=== PATIENT | female | born 1990 | race Caucasian/White ===

== ENCOUNTER 2019-06-15 15:42 | Emergency (ER) | payer MEDICAID, SELFPAY ==
[2019-06-15 15:52] VITALS: BP 170/91; PULSE 65; RESP 18; TEMP 37; O2SAT 99; BMI 37.3
--- NOTE | 2019-06-15 16:39 | W.ED.ABDPA2 ---
Documented by User: Liam Hobbs DO 06/16/19 06:07 HPI - Abdominal Pain General: Chief Complaint: Abdominal Pain Stated Complaint: abd pain Time Seen by Provider: 06/15/19 16:27 History of Present Illness: HPI narrative: 28-year-old female presents emergency room with a complaint of supraumbilical pain that began 5 days ago. Is worse when she is doing heavy labor when she is resting or sitting and supine states she has been mildly constipated lately no diarrhea no hematochezia or melena. She denies UTI symptoms she is vomited twice continues some mild nausea she says rest does seem to make it better she denies fever or dyspnea. She has previously had a cholecystectomy this was done probably 10 years ago she states MD elicited complaint: abdominal pain Pertinent past history: gastritis Onset (ago): minute(s) Pain Consistency: intermittent Location: Periumbilical Severity: moderate Quality: cramping Radiation: none Migration to: no migration Exacerbating factors: movement Relieving factors: nothing Associated Symptoms: Reports GI cramping, nausea, poor appetite and vomiting; Denies chills, fever(s), heartburn, hematochezia, hematuria, hematemesis, loose stools and melena Treatments prior to arrival: antacids Review of Systems Const: Denies: fever, chills, body aches, change in appetite, fatigue or malaise ENMT: Denies: throat pain, ear pain, nasal discharge or nasal congestion Card: Denies: chest pain, edema, shortness of breath on exertion or shortness of breath when lying down Resp: Denies: shortness of breath, productive cough or non-productive cough GI: Reports: nausea, vomiting and cramping; Denies: vomiting blood, heartburn/indigestion, blood in stool or black tarry stool : Denies: blood in urine Skin/Breast: Denies: rash or itching PFSH ED PFSH: Surgical History (Updated 06/15/19 @ 16:43 by Liam Hobbs DO) Hx laparoscopic cholecystectomy Social History Smoking and tobacco status: current every day smoker Physical Exam Const: COMMON NORMALS: no apparent distress GENERAL APPEARANCE: cooperative and comfortable ORIENTATION/CONSCIOUSNESS: Yes awake, Yes oriented to person, Yes oriented to place and Yes oriented to time HENMT: COMMON NORMALS: normocephalic, head/scalp atraumatic, hearing grossly normal bilaterally, external ears normal, EAC's normal, TM's normal bilaterally, nasal mucous membranes and turbinates normal, moist oral mucous membranes and oropharynx normal HEAD & SCALP: normocephalic and atraumatic NOSE: nasal mucous membranes and turbinates normal EXTERNAL EAR: Yes external ears normal EXTERNAL AUDITORY CANAL: EAC's normal TYMPANIC MEMBRANE: TM's normal bilaterally Eye: COMMON NORMALS: PERRL, EOMs intact bilaterally, conjunctivae normal and no scleral icterus CONJUNCTIVA: Yes conjunctivae normal PUPIL: Yes PERRL Neck/C-Spine: COMMON NORMALS: full ROM, no lymphadenopathy, supple and no JVD Lymph: LYMPHATIC: no lymphadenopathy noted and no lymphedema noted Resp: COMMON NORMALS: normal respiratory effort, no retractions, no use of accessory muscles and clear to auscultation bilaterally AUSCULTATION: clear to auscultation bilaterally Cardio: COMMON NORMALS: no JVD, regular rate, regular rhythm and no murmurs RATE: regular rate RHYTHM: regular rhythm GI: COMMON NORMALS: soft to palpation and no hepatosplenomegaly AUSCULTATION: Yes normoactive bowel sounds PALPATION: Yes soft, Yes tender (Epigastric), No guarding, No rigid and Yes no hepatosplenomegaly Extremity: COMMON NORMALS: normal to inspection, normal capillary refill, no clubbing, cyanosis or edema, no calf tenderness and no pedal edema Neuro: SENSORIUM/ORIENTATION: Yes oriented to person, Yes oriented to place and Yes oriented to time Skin: COMMON NORMALS: no rashes or lesions noted GENERAL SKIN EXAM: no rashes or lesions noted Course Vital Signs: Vital signs: Vital Signs Temperature 98.6 F 06/15/19 15:52 Pulse Rate 65 06/15/19 15:52 Respiratory Rate 18 06/15/19 15:52 Blood Pressure 170/91 06/15/19 15:52 Pulse Oximetry 99 06/15/19 15:52 MDM - Abdominal Pain MDM Narrative: Medical decision making narrative: Care transferred to Dr. Le at change of shift CT was pending. Lab Data: Labs: Lab Results 06/15/19 06/15/19 06/15/19 Range/Units 17:25 17:25 18:00 WBC 12.8 H (4.0-10.0) 10^3/ uL RBC 4.80 (4.1-5.3) 10^6/u L Hgb 14.2 (11.5-15.3) g/dL Hct 43.2 (37.0-47.0) % MCV 90.0 (81-99) fL MCH 29.6 (28.0-34.0) pg MCHC 32.9 (30.0-36.0) g/dL RDW 12.9 (12.1-15.1) % Plt Count 221 (130-400) 10^3/c mm MPV 10.0 (7.4-10.4) fL Neut % (Auto) 74.0 % Lymph % (Auto) 19.8 % Woodson % (Auto) 4.2 % Eos % (Auto) 1.3 % Baso % (Auto) 0.2 % Neut # (Auto) 9.5 H (1.8-7.7) 10^3/u L Lymph # (Auto) 2.5 (0.8-4.8) 10^3/u L Woodson # (Auto) 0.5 (0.2-0.9) 10^3/u L Eos # (Auto) 0.2 (0.0-0.8) 10^3/u L Baso # (Auto) 0.0 (0.0-0.1) 10^3/u L Nucleated RBC % (a uto) 0 % Nucleated RBCs # 0.0 /100WBC Sodium 138 (136-145) mmol/L Potassium 4.0 (3.5-5.1) mmol/L Chloride 104 (98-107) mmol/L Carbon Dioxide 23 (22-29) mmol/L Anion Gap 15.0 (5-19) BUN 8 (6-20) mg/dL Creatinine 0.6 (0.5-0.9) mg/dL GFR Calculation 120.8 (90-130) mL/min Glucose 94 (65-115) mg/dL Calculated Osmolal ity 282 L (285-295) mOsm/k g Calcium 9.5 (8.5-10.5) mg/dL Total Bilirubin 0.3 (0.15-1.2) mg/dL AST 17 (0-32) U/L ALT 15 (0-33) U/L Alkaline Phosphata se 62 (35-105) IU/L Total Protein 6.8 (6.6-8.7) g/dL Albumin 4.3 (3.5-5.2) g/dL Globulin 2.5 (1.3-4.6) g/dL Lipase 19 (13-60) U/L HCG, Qual Negative (Negative) Urine Color (Yellow) Urine Appearance (CLEAR) Urine pH (5-7) Ur Specific Gravit y (1.005-1.030) Urine Protein (Negative) Urine Glucose (UA) (Normal) Urine Ketones (Negative) Urine Blood (Negative) Urine Nitrate (Negative) Urine Bilirubin (NEGATIVE) Urine Urobilinogen (Negative) mg/dL Ur Leukocyte Yocasta ase (Negative) 06/15/19 06/15/19 Range/Units 18:00 18:25 WBC (4.0-10.0) 10^3/ uL RBC (4.1-5.3) 10^6/u L Hgb (11.5-15.3) g/dL Hct (37.0-47.0) % MCV (81-99) fL MCH (28.0-34.0) pg MCHC (30.0-36.0) g/dL RDW (12.1-15.1) % Plt Count (130-400) 10^3/c mm MPV (7.4-10.4) fL Neut % (Auto) % Lymph % (Auto) % Woodson % (Auto) % Eos % (Auto) % Baso % (Auto) % Neut # (Auto) (1.8-7.7) 10^3/u L Lymph # (Auto) (0.8-4.8) 10^3/u L Woodson # (Auto) (0.2-0.9) 10^3/u L Eos # (Auto) (0.0-0.8) 10^3/u L Baso # (Auto) (0.0-0.1) 10^3/u L Nucleated RBC % (a uto) % Nucleated RBCs # /100WBC Sodium (136-145) mmol/L Potassium (3.5-5.1) mmol/L Chloride (98-107) mmol/L Carbon Dioxide (22-29) mmol/L Anion Gap (5-19) BUN (6-20) mg/dL Creatinine (0.5-0.9) mg/dL GFR Calculation (90-130) mL/min Glucose (65-115) mg/dL Calculated Osmolal ity (285-295) mOsm/k g Calcium (8.5-10.5) mg/dL Total Bilirubin (0.15-1.2) mg/dL AST (0-32) U/L ALT (0-33) U/L Alkaline Phosphata se (35-105) IU/L Total Protein (6.6-8.7) g/dL Albumin (3.5-5.2) g/dL Globulin (1.3-4.6) g/dL Lipase (13-60) U/L HCG, Qual Negative (Negative) Urine Color Yellow (Yellow) Urine Appearance Sl hazy (CLEAR) Urine pH 5 (5-7) Ur Specific Gravit y 1.020 (1.005-1.030) Urine Protein Neg (Negative) Urine Glucose (UA) Norm (Normal) Urine Ketones 1+ H (Negative) Urine Blood Neg (Negative) Urine Nitrate Negative (Negative) Urine Bilirubin 1+ H (NEGATIVE) Urine Urobilinogen 1 H (Negative) mg/dL Ur Leukocyte Yocasta ase Negative (Negative) Discharge Plan Discharge Prescriptions: No Action Aspir-81 81 mg Tablet,Delayed Release (Dr/Ec) 81 mg PO DAILY RF: 0 Referrals: Junior Callaway MD [Primary Care Provider] - Discharge Date/Time: 06/15/19 19:21 Sign Out Sign Out Data: Patient Sign Out occurred on 06/15/19 at 18:00. Patient's care was discussed, and care was transferred from to Crystal Schwartz. Coding Level of Care Code ED Photography Assistant for Chg Fwd Exam Comprehensive Documented by User: Crystal Schwartz 06/15/19 19:17 HPI - Abdominal Pain General: Chief Complaint: Abdominal Pain Stated Complaint: abd pain Time Seen by Provider: 06/15/19 16:27 PFSH ED PFSH: Surgical History (Updated 06/15/19 @ 16:43 by Liam Hobbs DO) Hx laparoscopic cholecystectomy Social History Smoking and tobacco status: current every day smoker Course Vital Signs: Vital signs: Vital Signs Temperature 98.6 F 06/15/19 15:52 Pulse Rate 65 06/15/19 15:52 Respiratory Rate 18 06/15/19 15:52 Blood Pressure 170/91 06/15/19 15:52 Pulse Oximetry 99 06/15/19 15:52 MDM - Abdominal Pain MDM Narrative: Medical decision making narrative: 1899 -apparently the patient has eloped from the ER. I had not had a chance to see her after signout from Dr. Hobbs. No time was I involved in her care. Nursing is in for me though she has eloped from the ER we will try to contact her by phone and encouraged her to return. Lab Data: Labs: Lab Results 06/15/19 06/15/19 06/15/19 Range/Units 17:25 17:25 18:00 WBC 12.8 H (4.0-10.0) 10^3/ uL RBC 4.80 (4.1-5.3) 10^6/u L Hgb 14.2 (11.5-15.3) g/dL Hct 43.2 (37.0-47.0) % MCV 90.0 (81-99) fL MCH 29.6 (28.0-34.0) pg MCHC 32.9 (30.0-36.0) g/dL RDW 12.9 (12.1-15.1) % Plt Count 221 (130-400) 10^3/c mm MPV 10.0 (7.4-10.4) fL Neut % (Auto) 74.0 % Lymph % (Auto) 19.8 % Woodson % (Auto) 4.2 % Eos % (Auto) 1.3 % Baso % (Auto) 0.2 % Neut # (Auto) 9.5 H (1.8-7.7) 10^3/u L Lymph # (Auto) 2.5 (0.8-4.8) 10^3/u L Woodson # (Auto) 0.5 (0.2-0.9) 10^3/u L Eos # (Auto) 0.2 (0.0-0.8) 10^3/u L Baso # (Auto) 0.0 (0.0-0.1) 10^3/u L Nucleated RBC % (a uto) 0 % Nucleated RBCs # 0.0 /100WBC Sodium 138 (136-145) mmol/L Potassium 4.0 (3.5-5.1) mmol/L Chloride 104 (98-107) mmol/L Carbon Dioxide 23 (22-29) mmol/L Anion Gap 15.0 (5-19) BUN 8 (6-20) mg/dL Creatinine 0.6 (0.5-0.9) mg/dL GFR Calculation 120.8 (90-130) mL/min Glucose 94 (65-115) mg/dL Calculated Osmolal ity 282 L (285-295) mOsm/k g Calcium 9.5 (8.5-10.5) mg/dL Total Bilirubin 0.3 (0.15-1.2) mg/dL AST 17 (0-32) U/L ALT 15 (0-33) U/L Alkaline Phosphata se 62 (35-105) IU/L Total Protein 6.8 (6.6-8.7) g/dL Albumin 4.3 (3.5-5.2) g/dL Globulin 2.5 (1.3-4.6) g/dL Lipase 19 (13-60) U/L HCG, Qual Negative (Negative) Urine Color (Yellow) Urine Appearance (CLEAR) Urine pH (5-7) Ur Specific Gravit y (1.005-1.030) Urine Protein (Negative) Urine Glucose (UA) (Normal) Urine Ketones (Negative) Urine Blood (Negative) Urine Nitrate (Negative) Urine Bilirubin (NEGATIVE) Urine Urobilinogen (Negative) mg/dL Ur Leukocyte Yocasta ase (Negative) 06/15/19 06/15/19 Range/Units 18:00 18:25 WBC (4.0-10.0) 10^3/ uL RBC (4.1-5.3) 10^6/u L Hgb (11.5-15.3) g/dL Hct (37.0-47.0) % MCV (81-99) fL MCH (28.0-34.0) pg MCHC (30.0-36.0) g/dL RDW (12.1-15.1) % Plt Count (130-400) 10^3/c mm MPV (7.4-10.4) fL Neut % (Auto) % Lymph % (Auto) % Woodson % (Auto) % Eos % (Auto) % Baso % (Auto) % Neut # (Auto) (1.8-7.7) 10^3/u L Lymph # (Auto) (0.8-4.8) 10^3/u L Woodson # (Auto) (0.2-0.9) 10^3/u L Eos # (Auto) (0.0-0.8) 10^3/u L Baso # (Auto) (0.0-0.1) 10^3/u L Nucleated RBC % (a uto) % Nucleated RBCs # /100WBC Sodium (136-145) mmol/L Potassium (3.5-5.1) mmol/L Chloride (98-107) mmol/L Carbon Dioxide (22-29) mmol/L Anion Gap (5-19) BUN (6-20) mg/dL Creatinine (0.5-0.9) mg/dL GFR Calculation (90-130) mL/min Glucose (65-115) mg/dL Calculated Osmolal ity (285-295) mOsm/k g Calcium (8.5-10.5) mg/dL Total Bilirubin (0.15-1.2) mg/dL AST (0-32) U/L ALT (0-33) U/L Alkaline Phosphata se (35-105) IU/L Total Protein (6.6-8.7) g/dL Albumin (3.5-5.2) g/dL Globulin (1.3-4.6) g/dL Lipase (13-60) U/L HCG, Qual Negative (Negative) Urine Color Yellow (Yellow) Urine Appearance Sl hazy (CLEAR) Urine pH 5 (5-7) Ur Specific Gravit y 1.020 (1.005-1.030) Urine Protein Neg (Negative) Urine Glucose (UA) Norm (Normal) Urine Ketones 1+ H (Negative) Urine Blood Neg (Negative) Urine Nitrate Negative (Negative) Urine Bilirubin 1+ H (NEGATIVE) Urine Urobilinogen 1 H (Negative) mg/dL Ur Leukocyte Yocasta ase Negative (Negative) Discharge Plan Discharge Prescriptions: No Action Aspir-81 81 mg Tablet,Delayed Release (Dr/Ec) 81 mg PO DAILY RF: 0 Referrals: Junior Callaway MD [Primary Care Provider] - Discharge Date/Time: 06/15/19 19:21 Sign Out Sign Out Data: Patient Sign Out occurred on 06/15/19 at 18:00. Patient's care was discussed, and care was transferred from to Crystal Schwartz. Coding Level of Care Code ED Photography Assistant for [place] Fwd Exam Comprehensive
[2019-06-15 17:50] LABS: Basophils % 0.2 %; Eosinophils # 0.2 10^3/uL (0.0-0.8); Eosinophils % 1.3 %; Hematocrit 43.2 % (37.0-47.0); Hemoglobin 14.2 g/dL (11.5-15.3); Lymphocytes # 2.5 10^3/uL (0.8-4.8); Lymphocytes % 19.8 %; Mean Corpuscular HGB Conc 32.9 g/dL (30.0-36.0); Mean Corpuscular Hemoglobin 29.6 pg (28.0-34.0); Monocytes # 0.5 10^3/uL (0.2-0.9); Monocytes % 4.2 %; Neutrophils # 9.5 10^3/uL (1.8-7.7); Nucleated Red Blood Cells % 0 %; Platelet Count 221 10^3/cmm (130-400); Red Cell Distribution Width 12.9 % (12.1-15.1); White Blood Count 12.8 10^3/uL (4.0-10.0)
[2019-06-15 18:00] LABS: Alanine Aminotransferase 15 U/L (0-33); Albumin Level 4.3 g/dL (3.5-5.2); Alkaline Phosphatase 62 IU/L (35-105); Blood Urea Nitrogen 8 mg/dL (6-20); Calcium 9.5 mg/dL (8.5-10.5); Carbon Dioxide 23 mmol/L (22-29); Chloride 104 mmol/L (98-107); Globulin 2.5 g/dL (1.3-4.6); Glomerular Filtration Rate 120.8 mL/min (90-130); Glucose 94 mg/dL (65-115); Lipase 19 U/L (13-60); Osmolality Calculated 282 mOsm/kg (285-295); Sodium 138 mmol/L (136-145); Total Bilirubin 0.3 mg/dL (0.15-1.2); Total Protein 6.8 g/dL (6.6-8.7)
--- NOTE | 2019-06-15 18:31 | PC.NURSE ---
patient returned from ct tolerated well
[2019-06-15 18:46] LABS: HCG, Serum Qual Negative (Negative)
[2019-06-15 18:51] LABS: Aspartate Amino Transferase 17 U/L (0-32)
[2019-06-15 19:07] LABS: HCG Qualitative Urine. Negative (Negative)
--- NOTE | 2019-06-15 19:20 | PC.NURSE ---
Patient eloped without notifying staff, Dr. Schwartz aware
[2019-06-15 19:54] LABS: Bilirubin Urine 1+ (NEGATIVE); Blood Urine Neg (Negative); Glucose Urine UA Norm (Normal); Nitrate Urine Negative (Negative); Protein Urine Neg (Negative); Urine Appearance SL Hazy (CLEAR); Urine Color Yellow (Yellow); pH Urine 5 (5-7)
[2019-06-15 19:55] LABS: Add Urine Microscopic? NO; Ketones Urine 1+ (Negative); Leukocyte Esterase Urine Negative (Negative); Urobilinogen Urine 1 mg/dL (Negative)
== END 2019-06-15 19:21 ==
PROVIDERS: Emergency Medicine; Emergency Provider Emergency Medicine; Family Provider Family Medicine; PCP Family Medicine
DX: R10.9 Unspecified abdominal pain (principal); F17.210 Nicotine dependence, cigarettes, uncomplicated
CPT/HCPCS: 12345; 80053; 81003; 81025; 83690; 84703; 85025; 99282; A9270

== ENCOUNTER 2020-08-25 14:06 | Outpatient (CLI) | payer BC, MEDICAID, SELFPAY ==
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
== END 2020-08-25 14:07 | disposition home or self-care (01) ==
LOC: RAD 14:10
PROVIDERS: PCP Family Medicine; Visit Provider Nurse Practitioner
DX: M54.2 Cervicalgia (principal)
CPT/HCPCS: 72040

== ENCOUNTER → 2021-07-13 13:34 | Outpatient (BNVA) | payer BC, MEDICAID, SELFPAY | PROVIDERS: PCP Family Medicine; Visit Provider Psychiatry & Neurology Psychiatry | DX: F41.1 Generalized anxiety disorder (principal); F33.1 Major depressive disorder, recurrent, moderate; F43.12 Post-traumatic stress disorder, chronic; F12.21 Cannabis dependence, in remission; F17.210 Nicotine dependence, cigarettes, uncomplicated | CPT/HCPCS: 99204 ==

== ENCOUNTER → 2021-07-26 11:00 | Outpatient (BNVA) | payer BC, MEDICAID, SELFPAY | PROVIDERS: PCP Family Medicine; Visit Provider Obstetrics & Gynecology | DX: D06.9 Carcinoma in situ of cervix, unspecified (principal) | CPT/HCPCS: 81025 ==

== ENCOUNTER 2021-11-15 06:32 | Day surgery (SDC) | payer BC, MEDICAID, SELFPAY ==
[2021-11-13 09:51] VITALS: BMI 43.9
[2021-11-13 10:27] LABS: OR HCG Qualitative Urine Negative (Negative)
--- NOTE | 2021-11-13 10:27 | P.ANESASSM_ITS ---
Pre-Anesthetic Assessment Height/Weight: Height 1.8 m Weight 142.882 kg Preop Diagnosis: Abnormal Pap: atypical squamous cells cannot exclude high-grade Operation Date: 11/15/21 09:05 Proposed Procedures p Cervical cone biopsy 12099,ASC-LGSIL R87.611(Not Applicable) - Eliot Harden MD Familial anesthetic complications: None Social Tobacco and No alcohol marijuana two days ago Exam alert, oriented x 3, clear to auscultation bilaterally and regular rate & rhythm Airway Mallampati: Class II Dentition: partials Pulmonary None reported possible undiagnosed KADY CV/HEM Hypertension HR in 40s at times GI Gastroesophageal Reflux Disease Metabolic Morbid Obesity Anesthetic Plan ASA status: 3 Anesthesia: General Risk of > 500 ml blood loss (7ml/kg in children): No Medications/Allergies Home Medications Medication Instructions Recorded Confirmed Last Taken Type propranolol 20 mg tablet 20 mg PO BID PRN anxiety #60 tabs 07/13/21 11/13/21 Unknown Rx alprazolam 0.5 mg tablet (Xanax) 0.5 mg PO TID PRN Anxiety 10/10/21 11/13/21 Unknown History venlafaxine 75 mg tablet 75 mg PO DAILY 10/10/21 11/13/21 Unknown History Allergies Allergy/AdvReac Type Severity Reaction Status Date / Time No Known Allergies Allergy Verified 11/13/21 08:24 [facility] Anesthesia Medical History No pertinent past medical history neghx: htn,dm,thyroid,dvt/pe PCP: Dr. Sutton Psychiatric care Surgical History Hx laparoscopic cholecystectomy Family History Grandmother Diabetes maternal Cervical cancer maternal Mother Breast cancer Denies family history of Colon cancer Ovarian cancer Prostate cancer Heart disease Hyperlipidemia Bleeding disorder Hypertension Uterine cancer Thyroid disease Stroke Social History (Updated 07/26/21 @ 07:58 by Farhana Roper MA) Smoking and tobacco status: current every day smoker (1 ppd ) Female Reproductive History Date of last menstrual period: 10/23/21 Data Anesthesia Cardiac Studies: No Data to Display
[2021-11-13 10:32] LABS: Basophils % 0.3 %; Eosinophils # 0.3 10^3/uL (0.0-0.8); Eosinophils % 2.5 %; Hematocrit 43.9 % (37.0-47.0); Lymphocytes # 2.7 10^3/uL (0.8-4.8); Lymphocytes % 26.8 %; Mean Corpuscular HGB Conc 34.2 g/dL (30.0-36.0); Mean Corpuscular Hemoglobin 30.2 pg (28.0-34.0); Mean Corpuscular Volume 88.5 fl (81-99); Mean Platelet Volume 9.8 fL (7.4-10.4); Monocytes # 0.6 10^3/uL (0.2-0.9); Monocytes % 6.1 %; Neutrophils # 6.41 10^3/uL (1.8-7.7); Neutrophils % 64.1 %; Nucleated Red Blood Cells % 0 %; Platelet Count 252 10^3/cmm (130-400); Red Blood Count 4.96 10^6/uL (4.1-5.3); Red Cell Distribution Width 13.6 % (12.1-15.1)
[2021-11-13 10:50] LABS: Add Urine Culture? No; Add Urine Microscopic? YES; Bacteria Urine 2+ /hpf; Bilirubin Urine Neg (Negative); Blood Urine Neg (Negative); Glucose Urine UA Norm (Normal); Ketones Urine Negative (Negative); Leukocyte Esterase Urine Negative (Negative); Nitrate Urine Negative (Negative); Protein Urine Neg (Negative); Specific Gravity, Urine 1.015 (1.005-1.030); Squamous Epithelial Cell Urine 15-25 /hpf (0-5); Sulfosalicylic Acid Urine Negative (Negative); Urine Appearance SL Hazy (CLEAR); Urine Color Straw (Yellow); Urobilinogen Urine Norm (Negative); pH Urine 8 (5-7)
[2021-11-13 11:06] LABS: Alanine Aminotransferase 16 U/L (0-33); Albumin Level 4.2 g/dL (3.5-5.2); Alkaline Phosphatase 74 U/L (35-105); Anion Gap 12.4 (5-19); Aspartate Amino Transferase 14 U/L (0-32); Blood Urea Nitrogen 6 mg/dL (6-20); Calcium 9.8 mg/dL (8.5-10.5); Carbon Dioxide 25 mmol/L (22-29); Chloride 104 mmol/L (98-107); Globulin 2.6 g/dL (1.3-4.6); Glomerular Filtration Rate 146.9 mL/min (90-130); Glucose 95 mg/dL (65-115); Osmolality Calculated 281 mOsm/kg (285-295); Potassium 4.4 mmol/L (3.5-5.1); Sodium 137 mmol/L (136-145); Total Bilirubin 0.3 mg/dL (0.15-1.2); Total Protein 6.8 g/dL (6.6-8.7)
[2021-11-15] VITALS (10 sets, daily range): BP systolic 114–146; BP diastolic 56–93; PULSE 77–118; RESP 12–22; TEMP 36.6–36.8; O2SAT 92–97
[2021-11-15] MEDS: sodium chloride 0.9% 1,000 ML 30 ML IV (07:50)
[2021-11-15] MEDS: midazolam 1 mg/mL INJ 2 mL 2 MG IVP (07:54)
--- NOTE | 2021-11-15 07:57 | P.ANESUD_ITS ---
Pre-Anesthetic Update Pre-Anesthetic Assessment: Date of Surgery/Procedure: 11/15/21 Preop Anneliese gnosis: Abnormal Pap: atypical squamous cells cannot exclude high-grade Proposed Procedure: Operation Date: 11/15/21 08:45 Proposed Procedures p Cervical cone biopsy 22341,ASC-LGSIL R87.611(Not Applicable) - Eliot Harden MD Any changes to Pre-Anesthetic Assessment?: No Last Intake: Intake Last Liquid Date 11/15/21 Last Liquid Time 00:10 Last Solid Date 11/14/21 Last Solid Time 21:00 Labs Last 48hrs: Short CBC 11/13/21 Range/Units 10:13 WBC 10.0 (4.0-10.0) 10^3/ uL Hgb 15.0 (11.5-15.3) g/dL Hct 43.9 (37.0-47.0) % MCV 88.5 (81-99) fl Plt Count 252 (130-400) 10^3/c mm Neut % (Auto) 64.1 % Neut # (Auto) 6.41 (1.8-7.7) 10^3/u L BMP 11/13/21 10:13 Sodium 137 Potassium 4.4 Chloride 104 Carbon Dioxide 25 BUN 6 Creatinine 0.5 Glucose 95 Calcium 9.8 Liver Function 11/13/21 Range/Units 10:13 Total Bilirubin 0.3 (0.15-1.2) mg/dL AST 14 (0-32) U/L ALT 16 (0-33) U/L Alkaline Phosphata se 74 (35-105) U/L Albumin 4.2 (3.5-5.2) g/dL Urine 11/13/21 Range/Units 10:13 Urine Color Straw (Yellow) Urine Appearance Sl hazy (CLEAR) Urine pH 8 H (5-7) Ur Specific Gravit y 1.015 (1.005-1.030) Urine Protein Neg (Negative) Urine Glucose (UA) Norm (Normal) Urine Ketones Negative (Negative) Urine Nitrate Negative (Negative) Urine Bilirubin Neg (Negative) Ur Leukocyte Yocasta ase Negative (Negative) Urine RBC None (0-2) /hpf Urine WBC None (0-5) /hpf Blood Bank 11/13/21 10:13 Blood Type O Positive Rho(D) Type Positive Antibody Screen Negative Vitals: Temperature 98.3 F 11/15/21 07:22 Temperature Source Temporal Artery S can 11/15/21 07:22 Pulse Rate 77 11/15/21 07:22 Respiratory Rate 16 11/15/21 07:22 Blood Pressure 141/93 11/15/21 07:22 Blood Pressure Francesca n 109 11/15/21 07:22 Pulse Oximetry 97 11/15/21 07:22 Oxygen Delivery Me thod 11/15/21 07:22 Exam: Pre-Anes Outpt Exam: alert, oriented x 3, clear to auscultation bilaterally and regular rate & rhythm Cardiac Studies: No Data to Display
[2021-11-15] MEDS: scopolamine 1.5 Patch 1 PATCH TRANSDERMA (07:59)
--- NOTE | 2021-11-15 08:43 | W.PM.OPSUD ---
Surgery/Procedure H&P Update DATE OF PROCEDURE: November 15, 2021 DATE H&P PERFORMED: 11/13/21 H&P UPDATE INFORMATION: I have reviewed H&P completed within last 30 days, I have examined patient prior to procedure and No changes to prior documentation PREOP DIAGNOSIS: Abnormal Pap: atypical squamous cells cannot exclude high-grade PLANNED PROCEDURE: Operation Date: 11/15/21 08:45 Proposed Procedures p Cervical cone biopsy 00654,ASC-LGSIL R87.611(Not Applicable) - Eliot Harden MD
[2021-11-15] MEDS: ceFAZolin 2,000 MG in sodium chloride 0.9% (plus) 50 ML 100 MG IV (09:04)
--- NOTE | 2021-11-15 09:53 | P.OP_ITS ---
Operative Report Date of procedure: November 15, 2021 Pre-op diagnosis: Preop Diagnosis Abnormal Pap: atypical squamous cells cannot exclude high-grade Post-op diagnosis: Same as above Procedure done: Cervical cone biopsy Specimens removed/disposition: Cervical cone biopsy Surgeon: Eliot Harden MD Estimated blood loss (mL): 20 IV fluids (mL): 900 Complications: None Procedure: After informed consent, the patient was taken to the operating room where general anesthesia was administered without difficulty. After administration of general anesthesia, the patient was placed in the dorsal lithotomy position, and prepped and draped in the usual sterile fashion. A time-out procedure was performed. The patient was examined under anesthesia and found to have a normal uterus with normal adnexa. A weighted speculum was then placed in the patient's vagina and the anterior lip of the cervix grasped with the singed toothed tenaculum A uterine sound was then advanced into the cervix to determine its direction and length. The decending cervical branchs of the uterine arteries were ligated with 2-0 Vicryl bilaterally at the level of the internal os. Attention was then turned to the cervix where it was stain with Lugol?s solution to hightlight the lesion. The paracervical area was then circumferentially infiltrated using 1% Lidocaine with epinephrine. A Correlec Cone Biopsy Excisor was used to cut the cone biopsy in circular fashion and following removal of the specimen a suture was placed at the 12 o?clock location and fixed in formalin. Bleeding was minimal. The patient tolerated the procedure well, sponge, lap and needle counts were correct times two She was taken to the recovery room in good condition.
--- NOTE | 2021-11-15 15:11 | ANE.PACU2 ---
Inpatient post-anesthesia follow up: Airway intact: Yes Vital signs: Temperature 98 F Pulse Rate 82 Respiratory Rate 18 Blood Pressure 146/90 Pulse Oximetry 96 Oxygen Delivery Me thod Room Air Oxygen Flow Rate Fraction of Inspir ed Oxygen Hydration adequate: Yes Nausea and vomiting: No Pain level: 1 Mental status: Baseline
== END 2021-11-15 10:55 | disposition home or self-care (01) ==
PROVIDERS: PCP Family Medicine; Visit Provider Obstetrics & Gynecology
PROC: 0UB97ZZ Excision of Uterus, Via Natural or Artificial Opening (ICD-10-PCS; CPT 57520; principal; 2021-11-15 08:35)
DX: D06.0 Carcinoma in situ of endocervix (principal); I10 Essential (primary) hypertension; E66.01 Morbid (severe) obesity due to excess calories; Z68.41 Body mass index [BMI] 40.0-44.9, adult; F17.210 Nicotine dependence, cigarettes, uncomplicated
CPT/HCPCS: 57522; 36415; 80053; 81001; 84703; 85025; 86850; 86900; 88307; J0330; J1100; J1885; J2250; J2405; J2704; J3010; J7030

== ENCOUNTER 2024-11-21 15:39 | Inpatient (IN) | payer BC, MEDICAID, SELFPAY ==
[2024-11-21] VITALS (29 sets, daily range): BP systolic 115–149; BP diastolic 68–109; PULSE 61–99; RESP 16–17; O2SAT 88–100; BMI 41.8
[2024-11-21 15:47] LABS: Hematocrit 35.3 % (36-47); Hemoglobin 12.30 g/dL (11.27-16.99); Mean Corpuscular HGB Conc 34.8 g/dL (30-55); Mean Corpuscular Hemoglobin 30.6 pg (27-33); Mean Corpuscular Volume 87.8 fl (85-98); Nucleated Red Blood Cells % 0 %; Platelet Count 217 10^3/cmm (157-399); Red Blood Count 4.02 10^6/uL (3.85-5.65); White Blood Count 10.25 10^3/uL (3.29-11.43)
[2024-11-21] MEDS: penicillin g potassium 5,000,000 UNIT in sodium chloride 0.9% (plus) 100 ML 100 UNIT IV (15:55)
[2024-11-21] MEDS: fentaNYL 50 mcg/mL INJ 2mL IVP (19:54)
[2024-11-21] MEDS: PENICILLIN G POTASSIUM 2,500,000 UNIT/50 ML BAG 50 UNIT IV (20:58)
--- NOTE | 2024-11-21 21:10 | ANES.PREANE2 ---
Pre-Anesthetic Assessment Height/Weight: Height 1.8 m Weight 136.078 kg Pulse Resp BP Pulse Ox O2 Del Method 79 16 137/89 93 Room Air 11/21/24 21:32 11/21/24 19:54 11/21/24 21:32 11/21/24 21:31 11/21/24 15:15 Preop Diagnosis: labor epidural Familial anesthetic complications: none Was Beta Dex taken within 24 hours: N/A Was Clonidine taken within 24 hours: N/A Social Tobacco and No alcohol .5ppd pack(s) per day Exam alert and oriented x 3 Airway Submandibular: within normal limits Cervical ROM: within normal limits Mallampati: Class II Dentition: full History/ROS No significant history except as noted GI Gastroesophageal Reflux Disease Metabolic Morbid Obesity Neuropsych Anxiety and Depression Anesthetic Plan ASA status: 3 Anesthesia: Anesthesia Evaluation and Regional (specify below) Risk of > 500 ml blood loss (7ml/kg in children): Yes, adequate IV access and fluids planned Medications/Allergies Allergies Allergy/AdvReac Type Severity Reaction Status Date / Time No Known Allergies Allergy Verified 12/11/21 10:24 Current Medications Generic Name Dose Route Start Last Admin Trade Name Freq PRN Reason Stop Dose Admin Fentanyl 25 - 100 mcg 11/21/24 15:41 11/21/24 19:54 Fentanyl 50 Mcg/Ml Inj 2ml IVP 25 mcg Q1H PRN Administration SEVERE PAIN Dextrose/Lactated Ringer's 1,000 mls @ 125 mls/hr 11/21/24 16:00 11/21/24 15:55 Dextrose 5%-Lactated Ringers IV 125 mls/hr .Q8H DISHA Administration Penicillin G Potassium 2,500,000 unit in 50 mls @ 50 mls/hr 11/21/24 20:00 11/21/24 20:58 IV 50 mls/hr Q4H DISHA Administration Protocol Sodium Chloride 1,000 mls @ 999 mls/hr 11/21/24 20:10 11/21/24 20:15 Sodium Chloride 0.9% IV 999 mls/hr .Q1H1M PRN Administration See label comments PFSH Anesthesia Medical History (Updated 07/16/22 @ 11:31 by Jada Medel LPN) No pertinent past medical history neghx: htn,dm,thyroid,dvt/pe PCP: Dr. Sutton Surgical History Hx laparoscopic cholecystectomy Family History Grandmother Diabetes maternal Cervical cancer maternal Mother Breast cancer Denies family history of Colon cancer Ovarian cancer Prostate cancer Heart disease Hyperlipidemia Bleeding disorder Hypertension Uterine cancer Thyroid disease Stroke Social History (Updated 07/26/21 @ 07:58 by Farhana Roper LPN) Smoking and tobacco/nicotine status: current every day tobacco/nicotine user (1 ppd ) Female Reproductive History : 2 Data Anesthesia 11/21/24 15:25 Short CBC 11/21/24 Range/Units 15:25 WBC 10.25 (3.29-11.43) 10^3/uL Hgb 12.30 (11.27-16.99) g/dL Hct 35.3 L (36-47) % MCV 87.8 (85-98) fl Plt Count 217 (157-399) 10^3/cmm Neut % (Auto) 73.2 % Neut # (Auto) 7.51 (1.8-7.7) 10^3/uL Blood Bank 11/21/24 15:25 Blood Type O Positive Rho(D) Type Rh positive Antibody Screen Negative
--- NOTE | 2024-11-21 21:30 | ANES.PROC ---
Anesthesia Procedures Procedure/Date: 11/21/24 Epidural: Time Out Performed: Yes Consents Signed: Procedure Consent Consent: from patient, risks and benefits reviewed and patient agrees to proceed Lumbar Level: L3-L4 Epidural position: sitting Epidural procedure: sterile prep of area, 1% lidocaine to numb the area, 18 g needle, negative for paresthesia passed, test dose given, 1.5% xylocaine 1:200k epi, placed PCEA, no systemic response, sterile dressing applied, L.U.D. no apparent complications and 0.2% Ropiavacaine @ mls/hr (13) Additional Comments: CLAUDY at 7. taped at 13. negative heme/CSF with aspiration. tolerated well.
[2024-11-21] MEDS: ROPivacaine premix 200 MG/100 ML PREMIX 10 MG EPIDURAL (21:33)
[2024-11-22] VITALS (14 sets, daily range): BP systolic 111–156; BP diastolic 61–86; PULSE 48–89; RESP 15–16; TEMP 35.9–36.8; O2SAT 98
[2024-11-22] MEDS: PENICILLIN G POTASSIUM 2,500,000 UNIT/50 ML BAG 50 UNIT IV
[2024-11-22] MEDS: alum-mag-hydroxide-sime 30 mL UDC PO (00:11)
[2024-11-22] MEDS: oxytocin 30 UNIT/500 ML BAG IV (00:40)
--- NOTE | 2024-11-22 01:57 | P.HPUD_ITS ---
Labor & Delivery H&P Update Date of Procedure: November 22, 2024 Date H&P Performed: 11/19/24 Changes to previous documentation: The patient arrived with spontaneous rupture membranes Admission Diagnosis: 33-year-old 2 para 1-0-0-1 at 40 weeks estimated gestational age Preop diagnosis: labor epidural Planned procedure: Spontaneous vaginal delivery Other information: The patient is a relatively healthy 33-year-old woman at 40 weeks estimated stational age presented with spontaneous rupture membranes that occurred at about 8:00 on the day of admission. Initially she was not sure if she peed herself. She then had another gush of fluid around 12:00 that she knew was for rupture membranes. At that time she elected to come into the hospital for further evaluation. Her had been a relatively unremarkable. She received care by Dr. Wooten at [facility]. She began receiving care from him at 24 weeks estimated gestational age. Her blood type is O+. Her antibody screen is negative. She was GBS positive. She passed her glucose screen. She was positive for benzos, opiates, oxycodone and marijuana at her 6 9 drug screen. She is rubella nonimmune. Otherwise remainder of her infectious disease profile is within normal limits. Related Problem List Diagnoses 1. 40 weeks gestation of : 2. Spontaneous rupture of membranes: A&P Assessment and plan 1. 40 weeks gestation of : I anticipate routine labor and vaginal delivery. We will augment her labor with Cytotec and consider Pitocin and Cytotec as needed. Status: Acute 2. Spontaneous rupture of membranes: Status: Acute PDMP PDMP Reviewed: Not Reviewed
--- NOTE | 2024-11-22 02:03 | PM.DELIVERY ---
Delivery Note: Date of delivery: November 22, 2024 Pre-delivery diagnoses: 33-year-old 2 para 1-0-0-1 at 40 weeks estimated gestational age with spontaneous rupture of membranes Post-delivery diagnoses: Status post spontaneous vaginal delivery Procedure: Spontaneous vaginal delivery Delivering Physician: German Powell Estimated blood loss (mL): 50 Pre-Delivery Course: The patient presented to the hospital with spontaneous rupture of membranes. She is having minimal contractions. Cytotec 25 mcg x 1 was placed. An epidural was placed. Pitocin was used to augment her labor. She progressed to complete without difficulty. Delivery: DELIVERY: The patient progressed to complete without difficulty. She delivered a female with a weight of 6 pounds 9 ounces with Apgars of 8, 9. The baby was delivered from the BARBI position and placed on the mother's abdomen. The cord was then clamped and cut. There was no nuchal cord. There was no meconium. The placenta and 3 vessel cord were delivered intact shortly thereafter. The perineum and vaginal vault were carefully examined. A first-degree posterior midline tear was noted. A minor tear was also noted near the urethra. Neither tear was bleeding. Repair was not indicated. Both the mother and the baby were in stable condition. Post-Delivery Status: Good History History History 2 Term 2 0 Miscarriages/Ectopic 0 Living Children 2 A&P Assessment and plan 1. Spontaneous vaginal delivery: I anticipate routine care. 2. 40 weeks gestation of : 3. Spontaneous rupture of membranes: PDMP PDMP Reviewed: Not Reviewed Coding Level of Care Code Acute Code for Chg Fwd Diagnoses Spontaneous vaginal delivery O80 40 weeks gestation of Z3A.40 Spontaneous rupture of membranes
[2024-11-22] MEDS: ondansetron 2 mg/ML SDV 2 mL 4 MG IVP (02:11)
[2024-11-22 03:56] LABS: PCP Screen Urine Negative (Negative)
--- NOTE | 2024-11-22 04:41 | PC.NURSE ---
Patient wanted to go outside and smoke. This nurse educated patient that this was a no smoking facility and she could not go outside with an IV. Patient insisted she was going outside to smoke reguardless. This nurse took her IV out and will replace IV when she returns.
--- NOTE | 2024-11-22 04:48 | PC.NURSE ---
This nurse spoke with Dr. Powell reguarding her wanting her IV out to go smoke. Dr. Powell said to leave it out at this time.
[2024-11-22] MEDS: PRENATAL VIT NO.130/IRON/FOLIC 1 EACH TABLET PO (09:07)
[2024-11-22 14:58] LABS: Hematocrit 33.8 % (36-47); Hemoglobin 11.60 g/dL (11.27-16.99); Mean Corpuscular HGB Conc 34.3 g/dL (30-55); Mean Corpuscular Hemoglobin 31.4 pg (27-33); Mean Corpuscular Volume 91.4 fl (85-98); Platelet Count 201 10^3/cmm (157-399); Red Blood Count 3.70 10^6/uL (3.85-5.65); White Blood Count 12.33 10^3/uL (3.29-11.43)
[2024-11-23 05:20] VITALS: BP 90/51; PULSE 51; RESP 16; TEMP 36.4; O2SAT 96
--- NOTE | 2024-11-23 07:34 | PM.OBGYDC ---
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 Spontaneous vaginal delivery: 2. 40 weeks gestation of : 3. Spontaneous rupture of membranes: Reason for Visit Reason for Visit: Poss. [facility] Hospital Course Hospital Course This is a 33-year-old G2, P2 that presented with spontaneous rupture membranes. The patient delivered a viable infant female vaginally without significant complications. care has been unremarkable. Vital signs have remained stable. Information Peripartum Data: Infant Delivery Method: Vaginal Laceration description: Perineal - 1st Degree Episiotomy description: None complications: none Physical Exam Const: COMMON NORMALS: no acute distress, patient oriented x3 and alert Resp: COMMON NORMALS: normal respiratory effort, No retractions and No use of accessory muscles Cardio: COMMON NORMALS: regular rhythm and No murmurs present (Cardio) RATE: bradycardic RHYTHM: regular rhythm GI: OTHER: Uterus firm and below umbilicus Extremity: COMMON NORMALS: no clubbing, cyanosis or edema Neuro: COMMON NORMALS: patient oriented x3 SENSORIUM/ORIENTATION: Yes alert Psych: COMMON NORMALS: mental status grossly normal and cooperative Skin: COMMON NORMALS: no rashes or lesions noted GENERAL SKIN EXAM: no rashes or lesions noted Urinary Catheter Management: P[place]: Cath Placed During This Visit: yes, but has since been removed by the nurse Reason for Continuing Indwelling Catheter: Decision to DC Catheter Urinary Catheter Date of Insertion: 11/21/24 Urinary Catheter Time of Insertion: 22:07 Date Urinary Catheter Removed: 11/22/24 Time Urinary Catheter Discontinued: 01:42 History History History 2 Term 2 0 Miscarriages/Ectopic 0 Living Children 2 Discharge Data Studies Completed and Pending Laboratory Results WBC 12.33 10^3/uL (3.29-11.43) H 11/22/24 14:40 RBC 3.70 10^6/uL (3.85-5.65) L 11/22/24 14:40 Hgb 11.60 g/dL (11.27-16.99) 11/22/24 14:40 Hct 33.8 % (36-47) L 11/22/24 14:40 MCV 91.4 fl (85-98) 11/22/24 14:40 MCH 31.4 pg (27-33) 11/22/24 14:40 MCHC 34.3 g/dL (30-55) 11/22/24 14:40 RDW 14.1 % (12.1-15.1) 11/22/24 14:40 Plt Count 201 10^3/cmm (157-399) 11/22/24 14:40 MPV 10.1 fL (7.4-10.4) 11/22/24 14:40 Neut % (Auto) 73.2 % 11/21/24 15:25 Lymph % (Auto) 20.8 % 11/21/24 15:25 [place] % (Auto) 5.0 % 11/21/24 15:25 Eos % (Auto) 0.6 % 11/21/24 15:25 Baso % (Auto) 0.2 % 11/21/24 15: Neut # (Auto) 7.51 10^3/uL (1.8-7.7) 11/21/24 15:25 Lymph # (Auto) 2.1 10^3/uL (0.8-4.8) 11/21/24 15:25 [place] # (Auto) 0.5 10^3/uL (0.2-0.9) 11/21/24 15:25 Eos # (Auto) 0.1 10^3/uL (0.0-0.8) 11/21/24 15:25 Baso # (Auto) 0.0 10^3/uL (0.0-0.1) 11/21/24 15:25 Nucleated RBC % (auto) 0 % 11/21/24 15: Nucleated RBCs # 0.0 /100WBC 11/21/24 15:25 Urine Opiates Screen Negative ng/mL (Negative) 11/22/24 02:37 Ur Barbiturates Screen Negative ng/mL (Negative) 11/22/24 02:37 Ur Phencyclidine Scrn Negative ng/mL (Negative) 11/22/24 02:37 Ur Amphetamines Screen Negative ng/mL (Negative) 11/22/24 02:37 U Benzodiazepines Scrn Negative ng/mL (Negative) 11/22/24 02:37 Urine Cocaine Screen Negative ng/mL (Negative) 11/22/24 02:37 U Marijuana (THC) Screen Positive ng/mL (Negative) H 11/22/24 02:37 Blood Type O Positive 11/21/24 15:25 Rho(D) Type Rh positive 11/21/24 15:25 Antibody Screen Negative 11/21/24 15:25 Vitals Last Vital Signs Temp 97.6 F 11/23/24 05:20 Pulse 51 L 11/23/24 05:20 Resp 16 11/23/24 05:20 BP 90/51 11/23/24 05:20 Pulse Ox 96 11/23/24 05:20 O2 Del Method Room Air 11/23/24 05:20 Results Labs OB ([facility]): Blood Type O Positive 11/21/24 Antibody Screen Negative 11/21/24 Hct, (36-47) 33.8 % L 11/22/24 Hgb, (11.27-16.99) 11.60 g/dL 11/22/24 Rho(D) Type Rh positive 11/21/24 Plt Count, (157-399) 201 10^3/cmm 11/22/24 Urine Opiates Screen, (Negative) Negative ng/mL 11/22/24 Ur Barbiturates Screen, (Negative) Negative ng/mL 11/22/24 Ur Phencyclidine Scrn, (Negative) Negative ng/mL 11/22/24 Ur Amphetamines Screen, (Negative) Negative ng/mL 11/22/24 U Benzodiazepines Scrn, (Negative) Negative ng/mL 11/22/24 Urine Cocaine Screen, (Negative) Negative ng/mL 11/22/24 U Marijuana (THC) Screen, (Negative) Positive ng/mL H 11/22/24 Discharge Plan Discharge Patient Disposition: Home Condition: Stable Discharge Order = DC NOW: Discharge Order (Routine); Ordered 11/23/24 Ordered By: Javon Wooten Referrals: Javon Wooten MD [Physician, Family Practice] - 6 Weeks Discharge Diet: Usual diet Discharge Activity: Limit activity as instructed Patient Instructions: Depression (DC), Opioid Safety (DC), Preeclampsia and Eclampsia After Delivery (GEN), Hemorrhage (DC), OB Discharge Report, OB Food/Drug Interaction Guide, OB Care at Home, Opioid Safety, OB Vaginal Deliveries, Patient Portal & [place] Instructions, Abnormal Bleeding Discharge Attestations ASSISTANT STORE LEADER Time Spent in Discharge Care*: less than 30 min Coding Level of Care Code Acute Code for Chg Fwd Diagnoses Spontaneous vaginal delivery O80 40 weeks gestation of Z3A.40 Spontaneous rupture of membranes
[2024-11-23 09:37] VITALS: BP 117/62; PULSE 74; RESP 15; TEMP 36.8; O2SAT 98
== END 2024-11-23 09:30 | disposition home or self-care (01) | DRG 807 ==
LOC: OPOB 15:39 → OBGYN 15:39
PROVIDERS: Admitting Provider Family Medicine; PCP Family Medicine; Visit Provider Family Medicine
DX: O48.0 Post-term pregnancy (principal); Z37.0 Single live birth; Z3A.40 40 weeks gestation of pregnancy; O99.334 Smoking (tobacco) complicating childbirth; F17.210 Nicotine dependence, cigarettes, uncomplicated; O99.214 Obesity complicating childbirth; E66.01 Morbid (severe) obesity due to excess calories; O99.344 Other mental disorders complicating childbirth; F41.9 Anxiety disorder, unspecified; F32.A Depression, unspecified; O99.824 Streptococcus B carrier state complicating childbirth
CPT/HCPCS: 36415; 51702; 59025; 59409; 80306; 85025; 85027; 86850; 86900; 99211; J2405; J2540; J2590; J2795; J3010; J7030; J7121; J9999